=== PATIENT | female | born 1955 | race Two or more races ===

== ENCOUNTER 2019-01-20 07:23 | Outpatient (CLI) | payer OTHER | END 2019-01-20 10:55 | disposition home or self-care (01) | LOC: LAB 07:23 | DX: C44.519 Basal cell carcinoma of skin of other part of trunk (principal); D72.818 Other decreased white blood cell count; N02.8 Recurrent and persistent hematuria with other morphologic changes; E78.2 Mixed hyperlipidemia; D50.8 Other iron deficiency anemias; D51.8 Other vitamin B12 deficiency anemias; I10 Essential (primary) hypertension; D51.1 Vitamin B12 deficiency anemia due to selective vitamin B12 malabsorption with proteinuria; D51.0 Vitamin B12 deficiency anemia due to intrinsic factor deficiency ==